=== PATIENT | male | born 1945 | race Caucasian/White ===

== ENCOUNTER 2016-11-23 11:58 | Day surgery (SDC) | payer MEDICARE, OTHER ==
--- NOTE | 2016-11-20 16:13 | HP ---
PROCEDURE DATE: 11/23/16 HISTORY OF PRESENT ILLNESS: The patient is a 89 y/o gentleman, sore and some pain after sneezing over the past 2-3 months. Noticed a bulge prior to that. Wells he had a right inguinal hernia. Was referred for further evaluation. PAST MEDICAL HISTORY: Diabetes, hypertension. CURRENT MEDICATIONS: Has been on metformin, Tradjenta, metoprolol, nifedipine, triamterene hydrochlorothiazide, meloxicam, Fenofibrate, atorvastatin, allopurinol, niacin, polyethylene glycol, Ecotrin, Centrum Silver. He had a history of being on some Bactrim DS for ear infection in the past, last took in the middle of October. ALLERGIES: NKDA. PAST SURGICAL HISTORY: Had ear surgery and nose surgery in the past. FAMILY HISTORY: Heart disease, cancer, diabetes. SOCIAL HISTORY: No smoking or alcohol abuse. REVIEW OF SYSTEMS: 10 systems reviewed. No chest pain or palpitation. Otherwise, pertinent for as noted above. No shortness of breath currently. PHYSICAL EXAMINATION: GENERAL: No acute distress. HEENT: Sclerae nonicteric. NECK: No JVD. CHEST: Equal excursion. Nonlabored breathing. CVS: Regular rate and rhythm. ABDOMEN: Soft, obese. He has a right inguinal hernia on exam. On the left, no apparent hernia currently. EXTREMITIES: No edema. NEURO: Alert, moving extremities grossly symmetrically. IMPRESSION: 1. RIGHT INGUINAL HERNIA. Feel he would benefit from repair. Shown the risk sheet and explained the procedure in detail, but not limited to, bleeding; infection; small risk of hematoma or seroma or swelling or firmness under the incision; overall risk of hernia recurrence; risk of ingrown hair or suture reaction; risk if the mesh became infected likely would need to be removed; general risks of aches, pains, burning, or numbness in lower abdomen, groin, thigh, or scrotal area possibly long-term or chronic in nature up to 10-12% with a higher risk of intermittent ache or twinge; risk of urinary retention; risk of ecchymosis/black or blue bruising in the scrotal area. He also understands the importance of losing weight long-term to overall decrease the risk of recurring. He understands. Agrees to the planned procedure. Will proceed with repair right inguinal hernia with mesh as an outpatient.
[~2016-11-23 11:58] MED LIST: BICITRA 30 ML CUP ONE; BICITRA 30 ML CUP PO ONE; CEFAZOLIN 2 GM-D5W BAG** 50 ML IV ONE; DILAUDID 2 MG INJECTION IV ONE; DIPRIVAN 200 MG/20 ML IV ONE; Lactated Ringers 1,000 ML IV ONE; Lactated Ringers 1,000 ML IV SCH; Pepcid 20 MG VIAL IV ONE; Quelicin Fliptop 200 MG/10 ML IJ ONE; SUBLIMAZE 250 MCG/5 ML IV ONE; Sensorcaine 0.25% 10 ML ONE; Versed 2 MG/2 ML Injection IV ONE; Zofran 4 MG/2 ML VIAL IV ONE
[2016-11-23] MEDS ORDERED: SUBLIMAZE 100 MCG/2 ML ONE (18:00)
[2016-11-23 19:25] VITALS: PULSE 74
[2016-11-23 19:28] VITALS: BP 146/74; O2SAT 96
--- NOTE | 2016-11-24 08:34 | OP ---
SURGERY DATE/TIME: 11/23/2016 1532 PREOPERATIVE DIAGNOSIS: Right inguinal hernia. POSTOPERATIVE DIAGNOSES: Right inguinal hernia. PROCEDURE: Right inguinal hernia repair with mesh. SURGEON: Dr. Gunnar Garcia. LENS MOLDING EQUIPMENT OPERATOR: Eloisa Lovell, Medical Student III. ANESTHESIA: General. ESTIMATED BLOOD LOSS: Minimal. FINDINGS: Small indirect hernia, moderate direct hernia, extensive very large fatty spermatic cord intertwined with cord veins (not separate lipoma). INDICATIONS: As noted above. Risks and benefits explained in detail and not limited to and consent obtained. DESCRIPTION OF PROCEDURE AND FINDINGS: The patient is taken to the operating room. He had been preoperatively marked in the holding area. General anesthesia was induced. Abdomen, groin, genitalia prepped and draped in usual sterile fashion. After official time out and no disagreement with planned procedure, a transverse incision made in the right inguinal area. Dissection carried down through a large amount of adipose tissue, a couple small subcutaneous veins were clamped, divided and ligated with Vicryl ties. Dissection carried down to the Cindy fascia down a very deep space. External oblique splint in the direction of its fibers towards the external ring. The patient had extensive fatty spermatic cord. He did have a direct hernia component, had a small indirect hernia sac. Indirect hernia sac was from the fat laden cord and high ligated with some 0 Prolene. Otherwise the main hernia component was medially. He had a direct hernia which was imbricated downward. The floor repaired with interrupted 0 PDS in tension-free manner up to a normal sized internal ring. At this point the cord was carefully inspected. He had a couple small little cord lipomas that were away from the cord. They were clamped and ligated with 3-0 Vicryl suture ligature and Vicryl ties. However 98% of the adipose tissue was all intertwined with the cord veins. This was carefully inspected to see if it was separable from the cord itself but did not appear to be so. It all appeared to be a massive amount of cord fat intertwined with all the cord vessels. It was felt removing this would make physical exam easier in the future but could very well risk the blood supply to the testicle. Therefore it was felt this should be left in place as this is all intertwined with the cord veins and cord vessels and vas. Therefore at this point the floor had been repaired back to normal sized internal ring. It was felt this would benefit from mesh repair. A 2 x 4 piece of mesh cut to appropriate dimension secured to fascia along the pubic tubercle with 0 Prolene run along Amadou's ligament along shelving portion of ilioinguinal ligament with 0 Prolene laterally past the internal ring. 0 Prolene transfixed to the rectus fascia. 0 Vicryl used to transfix the aponeurosis and internal oblique superiorly avoiding the visible iliohypogastric and inguinal nerve branches were protected as well as possible the visible veins. At this point the keyhole had been cut. The tail of the mesh retracted laterally with 0 Prolene lying nice and flat on the external oblique. At this point, copious amount of irrigation irrigating until clear. The new internal ring was felt to be not too tight. The mesh nice and flat having reinforced the inguinal floor. It should be noted that the vas is larger on this side than the opposite side but was carefully reduced back down into the scrotum. Testicle is unchanged from preoperative. With a gentle tug the cord was straightened. At this point external oblique closed with 0 Vicryl. It should be noted that the patient had a massive amount of cord fat. Copious amount of irrigation irrigating until clear. Cindy closed with 3-0 Vicryl. Subcu closed with 3-0 Vicryl. Skin closed with 4-0 Vicryl. Steri-Strips and sterile dressing applied. 0.25% Marcaine local injected along the skin incision back towards the origin of the inguinal nerve back towards the IS and the testicle had been pulled back down with gentle traction insuring the cord was straight. Steri-Strips and sterile dressing applied. The patient tolerated the procedure well. There were no immediate complications. Findings were discussed with the family out in the waiting area appraising them of difficult physical exam down the road given the large amount of cord fat but the direct and indirect hernias had been repaired. Mesh had been placed as best we could that was possible at this juncture. It was felt the patient needs to work on losing weight shelter, avoid any heavy lifting, pushing, pulling for the next eight weeks to reduce the overall risk of recurrence. Otherwise he probably have given the depth of dissection and obesity likely have ecchymosis, black, blue and bruising. He was transferred to the recovery room in stable condition.
== END 2016-11-23 19:20 | disposition home or self-care (01) ==
LOC: SDC 11:58
PROVIDERS: ATTEND Surgery
PROC: 0YU50JZ Supplement Right Inguinal Region with Synthetic Substitute, Open Approach (ICD-10-PCS; principal; 2016-11-23)
DX: K40.90 Unilateral inguinal hernia, without obstruction or gangrene, not specified as recurrent (principal); E11.9 Type 2 diabetes mellitus without complications; Z79.4 Long term (current) use of insulin; I10 Essential (primary) hypertension; Z79.899 Other long term (current) drug therapy
CPT/HCPCS: 00830; 82962; 99100; J0330; J0690; J1170; J2250; J2405; J2704; J3010

== ENCOUNTER 2021-05-25 09:06 | Emergency (ER) | payer MEDICARE, OTHER ==
[2021-05-25] MEDS ORDERED: XYLOCAINE 1% HCL 20 ML MDV IJ ONE (09:07)
[2021-05-25 09:21] VITALS: O2SAT 92
[2021-05-25 10:23] VITALS: BP 117/65; PULSE 68
[2021-05-25 10:26] LABS: Appearance CLOUDY (CLEAR); Bacteria RARE /HPF (NEGATIVE); Bilirubin NEGATIVE (NEGATIVE); Blood LARGE Ery/ul (0-5); Glucose >=500 mg/dL (NEGATIVE); Ketones SMALL (NEGATIVE); Leukocyte Esterase MODERATE (NEGATIVE); Nitrite NEGATIVE (NEGATIVE); Non-Squamous Epithelial Cells RARE /HPF (FEW); Protein,Urine Dip 100 (Negative); Specific Gravity 1.029 (1.005-1.025); Urobilinogen 2 mg/dL (0-1); WBC >100 /HPF (0-5)
[2021-05-25 10:28] LABS: RBC >101 /HPF (0-2)
[2021-05-25] MEDS ORDERED: Rocephin 1000 MG INJ IM ONE (10:39)
--- NOTE | 2021-05-25 10:39 | ERPHSYRPT ---
- History of Present Illness Time Seen by Provider: 05/25/21 09:35 Source: patient Exam Limitations: no limitations Patient Subjective Stated Complaint: burning with urination, urgency, decreased urination x 05/22/21 Triage Nursing Assessment: pt to ED c/o UTI sx and fever, reports burning while urinating, urgency, dribbling, and decreased urination since 05/22/21. denies pain at this time. no other abd problems reported. pt was able to urinate on arrival to ED and urine appears dark and cloudy. afebrile on arrival without medication assistance. Physician History: Is a 76-year-old male who presents with fever to 102 at home since . He complains of dysuria voiding small amounts frequency urgency change in color and smell foul smelling urine. No history of any prostate or urinary tract problems in the past. Allergies/Adverse Reactions: No Known Drug Allergies Allergy (Verified 05/25/21 09:10) Home Medications: Allopurinol 1 tab PO DAILY 10/27/16 [History] Aspirin [Ecotrin] 1 tab PO DAILY 10/27/16 [History] Atorvastatin Calcium 1 tab PO DAILY 10/27/16 [History] Fenofibrate,Micronized 145 mg* [Tricor 145 MG] 1 tab PO DAILY 10/27/16 [Hist ory] Linagliptin [Tradjenta] 1 tab PO DAILY 10/27/16 [History] Meloxicam 15 mg [Meloxicam 15 MG] 1 tab PO DAILY 10/27/16 [History] Metformin HCl 1000 mg [Glucophage 1000 MG] 1 tab PO BID 10/27/16 [History] Metoprolol Tartrate 50 mg [Lopressor 50 MG] 100 mg PO BID 10/27/16 [History] Multivitamin W-Minerals/Lutein [Centrum Silver Tablet] 1 tab PO DAILY 10/27/16 [History] NIFEdipine [Nifedipine ER] 1 tab PO DAILY 10/27/16 [History] Niacin 500 mg PO DAILY 10/27/16 [History] Polyethylene Glycol 3350 17 gm [Miralax Powder 17GM PACKET] 1 packet PO DAILY 10/27/16 [History] Hx Tetanus, Diphtheria Vaccination/Date Given: Yes Hx Influenza Vaccination/Date Given: Yes Hx Pneumococcal Vaccination/Date Given: Yes Immunizations Up to Date: Yes Travel Risk - International Travel Have you traveled outside of the country in past 3 weeks: No - Coronavirus Screening Are you exhibiting any of the following symptoms?: No Close contact with a COVID-19 positive Pt in past 14-21 Days: No - Vaccine Status Have you recieved a Covid-19 vaccination: Yes 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 - Vaccination Dates Date of 2cond Vaccination (if applicable): first of the year - Past Medical History Pertinent Past Medical History: Yes Neurological History: Other ENT History: No Pertinent History Cardiac History: Arrhythmia, High Cholesterol, Hypertension Respiratory History: No Pertinent History Endocrine Medical History: Diabetes Type II Musculoskeletal History: Arthritis, Other GI Medical History: Other History: No Pertinent History Psycho-Social History: No Pertinent History Male Reproductive Disorders: No Pertinent History Other Medical History: 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 patient had tonsillectomy and adnoidectomy as a child, patient has arthritis and gout - Past Surgical History Past Surgical History: Yes Neuro Surgical History: No Pertinent History Cardiac: No Pertinent History Respiratory: No Pertinent History Gastrointestinal: Other Genitourinary: No Pertinent History Musculoskeletal: No Pertinent History Male Surgical History: No Pertinent History Other Surgical History: has had a colonoscopy has had nose surgery 1987, patient has had mastoid surgery 1963 - Social History Smoking Status: Never smoker Exposure to second hand smoke: No Drug Use: none Patient Lives Alone: No - Review of Systems Constitutional: Fever, Night Sweats Eyes: No Symptoms Ears, Nose, & Throat: No Symptoms Respiratory: No Cough, No Dyspnea Cardiac: No Chest Pain, No Edema, No Syncope Abdominal/Gastrointestinal: No Abdominal Pain, No Nausea, No Vomiting, No Diarrhea Genitourinary Symptoms: Dysuria, Frequency, Hematuria, Hesitancy, Urgency Musculoskeletal: No Back Pain, No Neck Pain Skin: No Rash Neurological: No Dizziness, No Focal Weakness, No Sensory Changes Psychological: No Symptoms Endocrine: No Symptoms Hematologic/Lymphatic: No Symptoms Immunological/Allergic: No Symptoms - Nursing Vital Signs Nursing Vital Signs: Initial Vital Signs Temperature 98 F 05/25/21 09:11 Pulse Rate 80 05/25/21 09:11 Respiratory Rate 20 05/25/21 09:11 Blood Pressure 148/66 05/25/21 09:11 O2 Sat by Pulse Oximetry 92 L 05/25/21 09:11 Pain Scale Pain Intensity 0 - Physical Exam General Appearance: mild distress, alert Eye Exam: PERRL/EOMI Ears, Nose, Throat Exam: pharynx normal, moist mucous membranes Neck Exam: normal inspection, supple Respiratory Exam: normal breath sounds, lungs clear Cardiovascular Exam: regular rate/rhythm, No edema Gastrointestinal/Abdomen Exam: soft, No tenderness Rectal Exam: deferred Male Genital Exam: normal genitalia Back Exam: normal inspection, No CVA tenderness Extremity Exam: normal inspection, normal range of motion, No pedal edema Neurologic Exam: alert, oriented x 3, cooperative, sensation nml, No motor deficits Skin Exam: normal color, warm, dry, No rash SpO2 Interpretation: normal SpO2: 92 O2 Delivery: Room Air - Course Nursing assessment & vital signs reviewed: Yes Ordered Tests: Active Orders 24 hr Category Date Time Status CULTURE,URINE Stat Lab 05/25/21 09:33 Received UA W/RFX UR CULTURE Stat Lab 05/25/21 09:33 Completed Lab/Rad Data: Laboratory Results 05/25/21 Range/Units 09:33 Urine Color ELISABETH (YELLOW) Urine Appearance CLOUDY (CLEAR) Urine pH 5.0 (5-6) Ur Specific [place] 1.029 (1.005-1.025) Urine Protein 100 (Negative) Urine Ketones SMALL (NEGATIVE) Urine Blood LARGE (0-5) Roger/ul Urine Nitrite NEGATIVE (NEGATIVE) Urine Bilirubin NEGATIVE (NEGATIVE) Urine Urobilinogen 2 (0-1) mg/dL Ur Leukocyte Esterase MODERATE (NEGATIVE) Urine WBC (Auto) >100 (0-5) /HPF Urine RBC (Auto) >101 (0-2) /HPF Urine Bacteria (Auto) RARE (NEGATIVE) /HPF U Non-Squamous Epi Cells RARE (FEW) /HPF Urine Culture Reflexed YES (NO) Urine Glucose >=500 (NEGATIVE) mg/dL - Progress Progress: unchanged - Departure Departure Disposition: Home Clinical Impression: Urinary tract infection Condition: Stable Critical Care Time: No Referrals: JUNE SHARMA [Primary Care Provider] - Instructions: Urinary Tract Infection, Adult (DC) Prescriptions: Smz/Tmp Ds Tablet [Bactrim Ds Tablet] 1 tab PO Q12H 10 Days #20 tablet Cephalexin Mh 500 mg [Keflex 500 mg] 500 mg PO QID #40 cap
[2021-05-25] MEDS ORDERED: Rocephin 1000 MG INJ ONE (10:45)
== END 2021-05-25 11:12 | disposition home or self-care (01) ==
LOC: ED 09:06
DX: N39.0 Urinary tract infection, site not specified (principal)
CPT/HCPCS: 81001; 87077; 87086; 87186; 96372; 99283; J0696

== ENCOUNTER 2022-12-01 16:01 | Observation (INO) | payer MEDICARE, OTHER ==
[2022-12-01 17:46] LABS: ALBUMIN 4.7 g/dL (3.5-5.0); ALKALINE PHOSPHATASE 72 U/L (38-126); ANION GAP 18.3 MEQ/L (5-15); BLOOD UREA NITROGEN 20 mg/dL (9-20); CHLORIDE 104 mmol/L (98-107); Calcium 9.2 mg/dL (8.4-10.2); Carbon Dioxide 22 mmol/L (22-30); Creatinine 1 0.95 mg/dL (0.66-1.25); EST GLOMERULAR FILTRATION RATE > 60.0 ML/MIN; Glucose 116 mg/dL (74-106); Potassium 3.8 mmol/L (3.5-5.1); SGOT/AST 44 U/L (17-59); SGPT/ALT 60 U/L (0-50); SODIUM 140 mmol/L (137-145); Total Protein 8.4 g/dL (6.3-8.2)
[2022-12-01 17:51] LABS: Absolute Neutrophil Ct (ANC) 4.59 x10^3/uL (1.4-6.9); BASOPHIL % 0.9 % (0.0-0.4); Eosinophil % 0.9 % (0.00-5.0); Hematocrit 49.1 % (42-50); Hemoglobin 16.7 g/dL (12.5-18.0); IMMATURE GRAN # 0.02 x10^3u/L (0.00-0.03); IMMATURE GRAN % 0.2 % (0.00-0.4); Lymphocytes % 47.7 % (24.0-44.0); Mean Cell Volume 94.1 fL (78-100); Mean Platelet Volume 10.5 fL (7.5-11.0); Monocyte (Absolute #) 0.79 x10^3/uL (0.0-1.3); Monocytes % 7.4 % (0.0-12.0); Neutrophil % 42.9 % (36.0-66.0); Platelet Count 289 x10^3/uL (150-450); Red Blood Count 5.22 x10^6/uL (4.1-5.6); Red Cell Distribution Width 13.2 % (11.5-14.0); White Blood Count 10.7 x10^3/uL (4.0-10.5)
--- NOTE | 2022-12-01 17:54 | ERPHSYRPT ---
- History of Present Illness Time Seen by Provider: 12/01/22 17:47 Source: patient Exam Limitations: no limitations Patient Subjective Stated Complaint: pt here for weakness, hypertension, and lower heart heart for a couple days. Triage Nursing Assessment: pt alert ,resp easy, skin w/d/p, arrived per wc, able to undress self, monitor vent bigeminy at times Physician History: Patient is a 77-year-old male presents to our ED for evaluation of generalized weakness and some dizziness only when he transitions from sit to stand. No nausea vomiting no diarrhea. No rash. No chest pain or shortness of breath. Symptoms are mild to moderate in intensity. Sit to stand reproduces symptoms. Patient asymptomatic at rest. Family at bedside. They voiced no other complaints or concerns at this time Patient reports low heart rate at home however it is unclear whether or not the heart rate/vitals were taken appropriately. Patient has not experienced any bouts of bradycardia while in our ED. Portions of this note were created with voice recognition technology. There may be grammatical, spelling, punctuation or sound alike errors Timing/Duration: today Severity: moderate Modifying Factors: Improves With: other (Transition of sit to stand.) Associated Symptoms: denies symptoms Allergies/Adverse Reactions: No Known Drug Allergies Allergy (Verified 12/01/22 16:29) Home Medications: Aspirin [Ecotrin] 1 tab PO DAILY 10/27/16 [History] Atorvastatin Calcium 1 tab PO DAILY 10/27/16 [History] Metformin HCl 1000 mg [Glucophage 1000 MG] 1 tab PO BID 10/27/16 [History] Metoprolol Tartrate 50 mg [Lopressor 50 MG] 100 mg PO BID 10/27/16 [History] Multivitamin W-Minerals/Lutein [Centrum Silver Tablet] 1 tab PO DAILY 10/27/16 [History] NIFEdipine [Nifedipine ER] 1 tab PO DAILY 10/27/16 [History] Niacin 500 mg PO DAILY 10/27/16 [History] Polyethylene Glycol 3350 17 gm [Miralax Powder 17GM PACKET] 1 packet PO DAILY 10/27/16 [History] allopurinoL [Allopurinol] 1 tab PO DAILY 10/27/16 [History] Empagliflozin [Jardiance] 25 mg PO DAILY 12/01/22 [History] Ergocalciferol (Vitamin D2) [Vitamin D2] 1 ea WEEKLY 12/01/22 [History] Ramipril [Altace] 5 mg PO DAILY 12/01/22 [History] Rivaroxaban 10 mg Tablet [Xarelto 10 mg Tablet] 20 mg PO DAILY 12/01/22 [History] Tamsulosin HCl 0.4 mg [Flomax 0.4 MG] 0.4 mg PO DAILY 12/01/22 [History] Hx Tetanus, Diphtheria Vaccination/Date Given: Yes Hx Influenza Vaccination/Date Given: Yes Hx Pneumococcal Vaccination/Date Given: Yes Immunizations Up to Date: Yes Travel Risk - International Travel Have you traveled outside of the country in past 3 weeks: No - Coronavirus Screening Are you exhibiting any of the following symptoms?: No Close contact with a COVID-19 positive Pt in past 14-21 Days: No - Vaccine Status Have you recieved a Covid-19 vaccination: Yes Appliance Repair Technician: [place] - Vaccination Dates Date of 2cond Vaccination (if applicable): first of the year - Review of Systems Constitutional: No Symptoms, No Fever, No Chills Eyes: No Symptoms Ears, Nose, & Throat: No Symptoms Respiratory: No Symptoms, No Cough, No Dyspnea Cardiac: No Symptoms, No Chest Pain, No Edema, No Syncope Abdominal/Gastrointestinal: No Symptoms, No Abdominal Pain, No Nausea, No Vomiting, No Diarrhea Genitourinary Symptoms: No Symptoms, No Dysuria Musculoskeletal: No Symptoms, No Back Pain, No Neck Pain Skin: No Symptoms, No Rash Neurological: No Symptoms, No Dizziness, No Focal Weakness, No Sensory Changes Psychological: No Symptoms Endocrine: No Symptoms Hematologic/Lymphatic: No Symptoms Immunological/Allergic: No Symptoms All Other Systems: Reviewed and Negative - Past Medical History Pertinent Past Medical History: Yes Neurological History: Other ENT History: No Pertinent History Cardiac History: Arrhythmia, High Cholesterol, Hypertension Respiratory History: No Pertinent History Endocrine Medical History: Diabetes Type II Musculoskeletal History: Arthritis, Other GI Medical History: Other History: No Pertinent History Psycho-Social History: No Pertinent History Male Reproductive Disorders: No Pertinent History Other Medical History: 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 patient had tonsillectomy and adnoidectomy as a child, patient has arthritis and gout - Past Surgical History Past Surgical History: Yes Neuro Surgical History: No Pertinent History Cardiac: No Pertinent History Respiratory: No Pertinent History Gastrointestinal: Other Genitourinary: No Pertinent History Musculoskeletal: No Pertinent History Male Surgical History: No Pertinent History Other Surgical History: has had a colonoscopy has had nose surgery 1971, 1987, patient has had mastoid surgery 1963 - Social History Smoking Status: Never smoker Exposure to second hand smoke: No Drug Use: none Patient Lives Alone: No - Nursing Vital Signs Nursing Vital Signs: Initial Vital Signs Temperature 97.6 F 12/01/22 16:28 Pulse Rate 72 12/01/22 16:28 Respiratory Rate 18 12/01/22 16:28 Blood Pressure 182/88 12/01/22 16:28 O2 Sat by Pulse Oximetry 96 12/01/22 16:28 Pain Scale Pain Intensity 0 - Physical Exam General Appearance: no apparent distress, alert Eye Exam: PERRL/EOMI, eyes nml inspection Ears, Nose, Throat Exam: normal ENT inspection, TMs normal, pharynx normal, moist mucous membranes Neck Exam: normal inspection, non-tender, supple, full range of motion Respiratory Exam: normal breath sounds, lungs clear, airway intact, No respiratory distress Cardiovascular Exam: regular rate/rhythm, normal heart sounds, normal peripheral pulses Gastrointestinal/Abdomen Exam: soft, normal bowel sounds, No tenderness, No mass Back Exam: normal inspection, normal range of motion, No CVA tenderness, No vertebral tenderness Extremity Exam: normal inspection, normal range of motion, pelvis stable Neurologic Exam: alert, oriented x 3, cooperative, normal mood/affect, nml cerebellar function, nml station & gait, sensation nml, No motor deficits Skin Exam: normal color, warm, dry, No rash Lymphatic Exam: No adenopathy SpO2 Interpretation: normal SpO2: 97 O2 Delivery: Room Air - Course Nursing assessment & vital signs reviewed: Yes EKG Interpreted by Me: RATE (80), Sinus Rhythm, NORMAL AXIS, prolonged QT inte rval - Radiology Exams Chest X-ray Interpretation: Interpreted by me (Nonacute chest) Ordered Tests: Active Orders 24 hr Category Date Time Status Refrigeration Mechanic Helper STAT Care 12/01/22 17:15 Active EKG-ER Only STAT Care 12/01/22 17:14 Active IV Insertion STAT Care 12/01/22 17:14 Active Pulse Oximetry (ED) STAT Care 12/01/22 17:14 Active CHEST 1 VIEW (PORTABLE) Stat Exams 12/01/22 17:15 Taken CBC W DIFF Stat Lab 12/01/22 17:25 Completed CMP Stat Lab 12/01/22 17:25 Completed MAG [MAGNESIUM] Stat Lab 12/01/22 17:25 Completed TROPONIN Q4H Lab 12/01/22 17:25 Completed TROPONIN Q4H Lab 12/01/22 20:15 Completed TROPONIN Q4H Lab 12/02/22 01:15 Ordered UA W/RFX UR CULTURE Stat Lab 12/01/22 17:26 Completed Transfer Order Routine Transfer 12/01/22 Ordered Medication Summary Discontinued Medications Generic Name Dose Route Start Last Admin Trade Name Freq PRN Reason Stop Dose Admin Sodium Chloride 1,000 mls @ 999 mls/hr 12/01/22 20:15 12/01/22 20:20 Sodium Chloride 0.9% 1000 Ml IV 12/01/22 21:15 999 mls/hr .Q1H1M STA Administration Sodium Chloride Confirm 12/01/22 20:18 Sodium Chloride 0.9% 1000 Ml Administered 12/01/22 20:19 Dose 1,000 mls @ ud .ROUTE .STK-MED ONE Lab/Rad Data: Laboratory Result Diagrams 12/01/22 17:25 12/01/22 17:25 Laboratory Results 12/01/22 12/01/22 12/01/22 Range/Units 20:15 17:30 17:26 WBC (4.0-10.5) x10^3/uL RBC (4.1-5.6) x10^6/uL Hgb (12.5-18.0) g/dL Hct (42-50) % MCV (78-100) fL MCH (26-32) pg MCHC (32-36) g/dL RDW (11.5-14.0) % Plt Count (150-450) x10^3/uL MPV (7.5-11.0) fL Gran % (36.0-66.0) % Immature Gran % (Auto) (0.00-0.4) % Nucleat RBC Rel Count (0.00-0.1) % Eos # (Auto) (0-0.5) x10^3/uL Immature Gran # (Auto) (0.00-0.03) x10^3u/L Absolute Lymphs (auto) (1.0-4.6) x10^3/uL Absolute Monos (auto) (0.0-1.3) x10^3/uL Absolute Nucleated RBC (0.00-0.01) x10^3u/L Lymphocytes % (24.0-44.0) % Monocytes % (0.0-12.0) % Eosinophils % (0.00-5.0) % Basophils % (0.0-0.4) % Absolute Granulocytes (1.4-6.9) x10^3/uL Basophils # (0-0.4) x10^3/uL Sodium (137-145) mmol/L Potassium (3.5-5.1) mmol/L Chloride (98-107) mmol/L Carbon Dioxide (22-30) mmol/L Anion Gap (5-15) MEQ/L BUN (9-20) mg/dL Creatinine (0.66-1.25) mg/dL Estimated GFR ML/MIN Glucose (74-106) mg/dL Calcium (8.4-10.2) mg/dL Magnesium (1.6-2.3) mg/dL Total Bilirubin (0.2-1.3) mg/dL AST (17-59) U/L ALT (0-50) U/L Alkaline Phosphatase (38-126) U/L Troponin I < 0.012 (0.000-0.034) ng/mL Serum Total Protein (6.3-8.2) g/dL Albumin (3.5-5.0) g/dL Urine Color Yellow (Yellow) Urine Appearance Clear (Clear) Urine pH 5.0 (4.6-8.0) Ur Specific Jolo 1.010 (1.005-1.030) Urine Protein Negative (Negative) Urine Glucose (UA) 500 A (Negative) mg/dL Urine Ketones Trace A (Negative) Urine Blood Negative (Negative) Urine Nitrite Negative (Negative) Urine Bilirubin Negative (Negative) Urine Urobilinogen 0.2 (0.2) mg/dL Ur Leukocyte Esterase Negative (Negative) U Hyaline Cast (Auto) NONE SEEN (0-2) /LPF Urine Microscopic RBC 0-2 (0-5) /HPF Urine Microscopic WBC 0-2 (0-5) /HPF Ur Epithelial Cells None Seen (None Seen) /HPF Urine Bacteria None Seen (None Seen) /HPF Urine Culture Reflexed NO (NO) Influenza Type A Ag NEGATIVE (NEGATIVE) Influenza Type B Ag NEGATIVE (NEGATIVE) RSV (PCR) NEGATIVE (Negative) SARS-CoV-2 (PCR) NEGATIVE (NEGATIVE) 12/01/22 12/01/22 12/01/22 Range/Units 17:25 17:25 17:25 WBC (4.0-10.5) x10^3/uL RBC (4.1-5.6) x10^6/uL Hgb (12.5-18.0) g/dL Hct (42-50) % MCV (78-100) fL MCH (26-32) pg MCHC (32-36) g/dL RDW (11.5-14.0) % Plt Count (150-450) x10^3/uL MPV (7.5-11.0) fL Gran % (36.0-66.0) % Immature Gran % (Auto) (0.00-0.4) % Nucleat RBC Rel Count (0.00-0.1) % Eos # (Auto) (0-0.5) x10^3/uL Immature Gran # (Auto) (0.00-0.03) x10^3u/L Absolute Lymphs (auto) (1.0-4.6) x10^3/uL Absolute Monos (auto) (0.0-1.3) x10^3/uL Absolute Nucleated RBC (0.00-0.01) x10^3u/L Lymphocytes % (24.0-44.0) % Monocytes % (0.0-12.0) % Eosinophils % (0.00-5.0) % Basophils % (0.0-0.4) % Absolute Granulocytes (1.4-6.9) x10^3/uL Basophils # (0-0.4) x10^3/uL Sodium 140 (137-145) mmol/L Potassium 3.8 (3.5-5.1) mmol/L Chloride 104 (98-107) mmol/L Carbon Dioxide 22 (22-30) mmol/L Anion Gap 18.3 H (5-15) MEQ/L BUN 20 (9-20) mg/dL Creatinine 0.95 (0.66-1.25) mg/dL Estimated GFR > 60.0 ML/MIN Glucose 116 H (74-106) mg/dL Calcium 9.2 (8.4-10.2) mg/dL Magnesium 1.9 (1.6-2.3) mg/dL Total Bilirubin 1.00 (0.2-1.3) mg/dL AST 44 (17-59) U/L ALT 60 H (0-50) U/L Alkaline Phosphatase 72 (38-126) U/L Troponin I < 0.012 (0.000-0.034) ng/mL Serum Total Protein 8.4 H (6.3-8.2) g/dL Albumin 4.7 (3.5-5.0) g/dL Urine Color (Yellow) Urine Appearance (Clear) Urine pH (4.6-8.0) Ur Specific Jolo (1.005-1.030) Urine Protein (Negative) Urine Glucose (UA) (Negative) mg/dL Urine Ketones (Negative) Urine Blood (Negative) Urine Nitrite (Negative) Urine Bilirubin (Negative) Urine Urobilinogen (0.2) mg/dL Ur Leukocyte Esterase (Negative) U Hyaline Cast (Auto) (0-2) /LPF Urine Microscopic RBC (0-5) /HPF Urine Microscopic WBC (0-5) /HPF Ur Epithelial Cells (None Seen) /HPF Urine Bacteria (None Seen) /HPF Urine Culture Reflexed (NO) Influenza Type A Ag (NEGATIVE) Influenza Type B Ag (NEGATIVE) RSV (PCR) (Negative) SARS-CoV-2 (PCR) (NEGATIVE) 12/01/22 Range/Units 17:25 WBC 10.7 H (4.0-10.5) x10^3/uL RBC 5.22 (4.1-5.6) x10^6/uL Hgb 16.7 (12.5-18.0) g/dL Hct 49.1 (42-50) % MCV 94.1 (78-100) fL MCH 32.0 (26-32) pg MCHC 34.0 (32-36) g/dL RDW 13.2 (11.5-14.0) % Plt Count 289 (150-450) x10^3/uL MPV 10.5 (7.5-11.0) fL Gran % 42.9 (36.0-66.0) % Immature Gran % (Auto) 0.2 (0.00-0.4) % Nucleat RBC Rel Count 0.0 (0.00-0.1) % Eos # (Auto) 0.10 (0-0.5) x10^3/uL Immature Gran # (Auto) 0.02 (0.00-0.03) x10^3u/L Absolute Lymphs (auto) 5.10 H (1.0-4.6) x10^3/uL Absolute Monos (auto) 0.79 (0.0-1.3) x10^3/uL Absolute Nucleated RBC 0.00 (0.00-0.01) x10^3u/L Lymphocytes % 47.7 H (24.0-44.0) % Monocytes % 7.4 (0.0-12.0) % Eosinophils % 0.9 (0.00-5.0) % Basophils % 0.9 (0.0-0.4) % Absolute Granulocytes 4.59 (1.4-6.9) x10^3/uL Basophils # 0.10 (0-0.4) x10^3/uL Sodium (137-145) mmol/L Potassium (3.5-5.1) mmol/L Chloride (98-107) mmol/L Carbon Dioxide (22-30) mmol/L Anion Gap (5-15) MEQ/L BUN (9-20) mg/dL Creatinine (0.66-1.25) mg/dL Estimated GFR ML/MIN Glucose (74-106) mg/dL Calcium (8.4-10.2) mg/dL Magnesium (1.6-2.3) mg/dL Total Bilirubin (0.2-1.3) mg/dL AST (17-59) U/L ALT (0-50) U/L Alkaline Phosphatase (38-126) U/L Troponin I (0.000-0.034) ng/mL Serum Total Protein (6.3-8.2) g/dL Albumin (3.5-5.0) g/dL Urine Color (Yellow) Urine Appearance (Clear) Urine pH (4.6-8.0) Ur Specific Jolo (1.005-1.030) Urine Protein (Negative) Urine Glucose (UA) (Negative) mg/dL Urine Ketones (Negative) Urine Blood (Negative) Urine Nitrite (Negative) Urine Bilirubin (Negative) Urine Urobilinogen (0.2) mg/dL Ur Leukocyte Esterase (Negative) U Hyaline Cast (Auto) (0-2) /LPF Urine Microscopic RBC (0-5) /HPF Urine Microscopic WBC (0-5) /HPF Ur Epithelial Cells (None Seen) /HPF Urine Bacteria (None Seen) /HPF Urine Culture Reflexed (NO) Influenza Type A Ag (NEGATIVE) Influenza Type B Ag (NEGATIVE) RSV (PCR) (Negative) SARS-CoV-2 (PCR) (NEGATIVE) - Progress Progress: improved Progress Note: Patient is 77-year-old male presents to our ED feeling unwell. Patient experiencing nonspecific complaints. Patient is a known diabetic on Jardiance. Patient's symptoms have been ongoing for approximately 2 days. Complexity of symptom is acute uncomplicated with systemic illness. Patient experiencing dizziness generalized weakness. Testing ordered includes EKG which is a normal sinus rhythm but displaying PVC. Chest x-ray which is unremarkable. CBC CMP. CMP reveals an anion gap acidosis. COVID test ordered. COVID-negative. Troponin negative. Urinalysis reveals trace ketones. In light of these findings and ketonuria it appears patient may be experiencing euglycemic DKA. Complexity of data reviewed and analyzed is moderate. Test ordered. Test reviewed. Patient's granddaughter at bedside served as independent historian. Patient unable to provide detailed history likely due to patient's age. Case discussed with Dr. Chatterjee hospitalist who accepts admission and will enter all admit orders. Since patient will be on insulin drip patient admitted to the ICU. Risk of complications and morbidity/mortality of patient management is low. Dominik chicas received IV fluids in our ED. Patient management will come from admitting physician. Patient agrees to admission at [facility]. Portions of this note were created with voice recognition technology. There may be grammatical, spelling, punctuation or sound alike errors 12/01/22 21:[address].: Other (Dr. Vargas) Will see patient in: hospital (observation) Counseled pt/family regarding: lab results, diagnosis, rad results - Departure Departure Disposition: Observation Clinical Impression: Euglycemic DKA, High anion gap metabolic acidosis, Generalized weakness, Ketonuria Condition: Stable Critical Care Time: No Referrals: JUNE SHARMA [Primary Care Provider] - Follow up/PCP as directed
[2022-12-01 18:00] LABS: Appearance Clear (Clear); Bacteria None Seen /HPF (None Seen); Bilirubin Negative (Negative); Blood Negative (Negative); Epithelial Cells None Seen /HPF (None Seen); Glucose, Urine 500 mg/dL (Negative); Hyaline Casts NONE SEEN /LPF (0-2); Ketones Trace (Negative); Leukocyte Esterase Negative (Negative); Nitrite Negative (Negative); Protein,Urine Dip Negative (Negative); RBC 0-2 /HPF (0-5); Urobilinogen 0.2 mg/dL (0.2); WBC 0-2 /HPF (0-5)
[2022-12-01 18:05] LABS: ADD URINE CULTURE? NO (NO)
[2022-12-01 18:23] LABS: INFLUENZA A NEGATIVE (NEGATIVE); INFLUENZA B NEGATIVE (NEGATIVE); RESPIRATORY SYNCTIAL VIRUS NEGATIVE (Negative); SARS-CoV-2 Xpert Express NEGATIVE (NEGATIVE)
[2022-12-01] MEDS ORDERED: Sodium Chloride 0.9% 1000 ML 1,000 ML IV STA (20:15)
[2022-12-01] MEDS ORDERED: Sodium Chloride 0.9% 1000 ML 1,000 ML ONE (20:18)
[2022-12-01] MEDS ORDERED: Lactated Ringers 1,000 ML IV SCH (23:45)
[2022-12-02] MEDS ORDERED: HUMALOG SQ PRN
--- NOTE | 2022-12-02 00:07 | PCM.HP ---
History of Present Illness - Chief Complaint Chief Complaint: bradycardia Date: 12/02/22 History of Present Illness: is a 77 year old male. 77 yo wm with hx of HTN, DM, BPH, Afib on AC presents with a 2-3 day hx of bradycardia intermittently with sxs of orthostasis on arising. Pt has noted a normal BP when this occurs. He denies recent changes in medications but baseline HR in 50s. He has had the metoprolol dosing halved > 6 months ago. He denies fevers/chills/n/v/d and has had a good appetite. He presented to the ED and was hypertensive. He had a very mildly elevated anion gap and thus was admitted for w/u. - Review of Systems Constitutional: No Fever, No Chills Respiratory: No Cough, No Short Of Breath Cardiac: Other (pre syncope), No Chest Pain, No Edema Abdominal/Gastrointestinal: No Abdominal Pain, No Nausea, No Vomiting Genitourinary Symptoms: No Dysuria Musculoskeletal: No Arthralgias Skin: No Cellulitis Neurological: Dizziness Endocrine: No Polyuria, No Polydipsia Hematologic/Lymphatic: No Blood Clots Immunological/Allergic: No Eczema Medications & Allergies Home Medications: Home Medication List Aspirin [Ecotrin] 1 tab PO DAILY 10/27/16 [History Confirmed 12/01/22] Atorvastatin Calcium 1 tab PO DAILY 10/27/16 [History Confirmed 12/01/22] Metformin HCl 1000 mg [Glucophage 1000 MG] 1 tab PO BID 10/27/16 [History Confirmed 12/01/22] Metoprolol Tartrate 50 mg [Lopressor 50 MG] 50 mg PO BID 10/27/16 [History Confirmed 12/01/22] Multivitamin W-Minerals/Lutein [Centrum Silver Tablet] 1 tab PO DAILY 10/27/16 [History Confirmed 12/01/22] NIFEdipine [Nifedipine ER] 1 tab PO DAILY 10/27/16 [History Confirmed 12/01/22] Niacin 500 mg PO DAILY 10/27/16 [History Confirmed 12/01/22] Polyethylene Glycol 3350 17 gm [Miralax Powder 17GM PACKET] 1 packet PO DAILY 10/27/16 [History Confirmed 12/01/22] allopurinoL [Allopurinol] 1 tab PO DAILY 10/27/16 [History Confirmed 12/01/22] Empagliflozin [Jardiance] 25 mg PO DAILY 12/01/22 [History Confirmed 12/01/22] Ergocalciferol (Vitamin D2) [Vitamin D2] 1 ea WEEKLY 12/01/22 [History Confirmed 12/01/22] Ramipril [Altace] 5 mg PO DAILY 12/01/22 [History Confirmed 12/01/22] Rivaroxaban 10 mg Tablet [Xarelto 10 mg Tablet] 20 mg PO DAILY 12/01/22 [History Confirmed 12/01/22] Tamsulosin HCl 0.4 mg [Flomax 0.4 MG] 0.4 mg PO DAILY 12/01/22 [History Confirmed 12/01/22] Allergies/Adverse Reactions: Allergies Allergy/AdvReac Type Severity Reaction Status Date / Time No Known Drug Allergies Allergy Verified 12/01/22 16:29 - Past Medical History Past Medical History: Yes Neurological History: Other ENT History: No Pertinent History Cardiac History: Arrhythmia, High Cholesterol, Hypertension Respiratory History: No Pertinent History Endocrine Medical History: Diabetes Type II Musculoskelatal History: Arthritis, Other GI Medical History: Other History: No Pertinent History Pyscho-Social History: No Pertinent History Male Reproductive Disorders: No Pertinent History Comment: 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 patient had tonsillectomy and adnoidectomy as a child, patient has arthritis and gout - Past Surgical History Past Surgical History: Yes Neuro Surgical History: No Pertinent History Cardiac History: No Pertinent History Respiratory Surgery: No Pertinent History GI Surgical History: Other Genitourinary Surgical Hx: No Pertinent History Musculskeletal Surgical Hx: No Pertinent History Male Surgical History: No Pertinent History Other Surgical History: has had a colonoscopy has had nose surgery 1987, patient has had mastoid surgery 1963 - Social History Smoking Status: Never smoker Exposure to second hand smoke: No Alcohol: None Drug Use: none - Physical Exam Vital Signs: Vital Signs - 24 hr Temp Pulse Resp BP Pulse Ox 12/01/22 22:04 97 12/01/22 22:03 76 18 168/74 97 12/01/22 21:00 80 20 170/82 94 L 12/01/22 20:00 76 18 163/78 93 L 12/01/22 19:00 72 20 166/64 94 L 12/01/22 17:28 84 20 182/106 97 12/01/22 17:21 98 12/01/22 16:28 97.6 F 72 18 182/88 96 General Appearance: no apparent distress Neurologic Exam: alert, oriented x 3, cooperative Eye Exam: PERRL/EOMI Ears, Nose, Throat Exam: normal ENT inspection Neck Exam: normal inspection, supple Respiratory Exam: normal breath sounds Cardiovascular Exam: regular rate/rhythm, murmur Gastrointestinal/Abdomen Exam: soft, normal bowel sounds, No tenderness, No distention Back Exam: normal inspection Extremity Exam: normal inspection Results - Labs Lab/Micro Results: Lab Results-Last 24 Hours 12/01/22 12/01/22 12/01/22 Range/Units 17:25 17:25 17:25 WBC 10.7 H (4.0-10.5) x10^3/uL RBC 5.22 (4.1-5.6) x10^6/uL Hgb 16.7 (12.5-18.0) g/dL Hct 49.1 (42-50) % MCV 94.1 (78-100) fL MCH 32.0 (26-32) pg MCHC 34.0 (32-36) g/dL RDW 13.2 (11.5-14.0) % Plt Count 289 (150-450) x10^3/uL MPV 10.5 (7.5-11.0) fL Gran % 42.9 (36.0-66.0) % Immature Gran % (Auto) 0.2 (0.00-0.4) % Nucleat RBC Rel Count 0.0 (0.00-0.1) % Eos # (Auto) 0.10 (0-0.5) x10^3/uL Immature Gran # (Auto) 0.02 (0.00-0.03) x10^3u/L Absolute Lymphs (auto) 5.10 H (1.0-4.6) x10^3/uL Absolute Monos (auto) 0.79 (0.0-1.3) x10^3/uL Absolute Nucleated RBC 0.00 (0.00-0.01) x10^3u/L Lymphocytes % 47.7 H (24.0-44.0) % Monocytes % 7.4 (0.0-12.0) % Eosinophils % 0.9 (0.00-5.0) % Basophils % 0.9 (0.0-0.4) % Absolute Granulocytes 4.59 (1.4-6.9) x10^3/uL Basophils # 0.10 (0-0.4) x10^3/uL Sodium 140 (137-145) mmol/L Potassium 3.8 (3.5-5.1) mmol/L Chloride 104 (98-107) mmol/L Carbon Dioxide 22 (22-30) mmol/L Anion Gap 18.3 H (5-15) MEQ/L BUN 20 (9-20) mg/dL Creatinine 0.95 (0.66-1.25) mg/dL Estimated GFR > 60.0 ML/MIN Glucose 116 H (74-106) mg/dL Calcium 9.2 (8.4-10.2) mg/dL Magnesium (1.6-2.3) mg/dL Total Bilirubin 1.00 (0.2-1.3) mg/dL AST 44 (17-59) U/L ALT 60 H (0-50) U/L Alkaline Phosphatase 72 (38-126) U/L Troponin I < 0.012 (0.000-0.034) ng/mL Serum Total Protein 8.4 H (6.3-8.2) g/dL Albumin 4.7 (3.5-5.0) g/dL Urine Color (Yellow) Urine Appearance (Clear) Urine pH (4.6-8.0) Ur Specific [place] (1.005-1.030) Urine Protein (Negative) Urine Glucose (UA) (Negative) mg/dL Urine Ketones (Negative) Urine Blood (Negative) Urine Nitrite (Negative) Urine Bilirubin (Negative) Urine Urobilinogen (0.2) mg/dL Ur Leukocyte Esterase (Negative) U Hyaline Cast (Auto) (0-2) /LPF Urine Microscopic RBC (0-5) /HPF Urine Microscopic WBC (0-5) /HPF Ur Epithelial Cells (None Seen) /HPF Urine Bacteria (None Seen) /HPF Urine Culture Reflexed (NO) Influenza Type A Ag (NEGATIVE) Influenza Type B Ag (NEGATIVE) RSV (PCR) (Negative) SARS-CoV-2 (PCR) (NEGATIVE) 12/01/22 12/01/22 12/01/22 Range/Units 17:25 17:26 17:30 WBC (4.0-10.5) x10^3/uL RBC (4.1-5.6) x10^6/uL Hgb (12.5-18.0) g/dL Hct (42-50) % MCV (78-100) fL MCH (26-32) pg MCHC (32-36) g/dL RDW (11.5-14.0) % Plt Count (150-450) x10^3/uL MPV (7.5-11.0) fL Gran % (36.0-66.0) % Immature Gran % (Auto) (0.00-0.4) % Nucleat RBC Rel Count (0.00-0.1) % Eos # (Auto) (0-0.5) x10^3/uL Immature Gran # (Auto) (0.00-0.03) x10^3u/L Absolute Lymphs (auto) (1.0-4.6) x10^3/uL Absolute Monos (auto) (0.0-1.3) x10^3/uL Absolute Nucleated RBC (0.00-0.01) x10^3u/L Lymphocytes % (24.0-44.0) % Monocytes % (0.0-12.0) % Eosinophils % (0.00-5.0) % Basophils % (0.0-0.4) % Absolute Granulocytes (1.4-6.9) x10^3/uL Basophils # (0-0.4) x10^3/uL Sodium (137-145) mmol/L Potassium (3.5-5.1) mmol/L Chloride (98-107) mmol/L Carbon Dioxide (22-30) mmol/L Anion Gap (5-15) MEQ/L BUN (9-20) mg/dL Creatinine (0.66-1.25) mg/dL Estimated GFR ML/MIN Glucose (74-106) mg/dL Calcium (8.4-10.2) mg/dL Magnesium 1.9 (1.6-2.3) mg/dL Total Bilirubin (0.2-1.3) mg/dL AST (17-59) U/L ALT (0-50) U/L Alkaline Phosphatase (38-126) U/L Troponin I (0.000-0.034) ng/mL Serum Total Protein (6.3-8.2) g/dL Albumin (3.5-5.0) g/dL Urine Color Yellow (Yellow) Urine Appearance Clear (Clear) Urine pH 5.0 (4.6-8.0) Ur Specific [place] 1.010 (1.005-1.030) Urine Protein Negative (Negative) Urine Glucose (UA) 500 A (Negative) mg/dL Urine Ketones Trace A (Negative) Urine Blood Negative (Negative) Urine Nitrite Negative (Negative) Urine Bilirubin Negative (Negative) Urine Urobilinogen 0.2 (0.2) mg/dL Ur Leukocyte Esterase Negative (Negative) U Hyaline Cast (Auto) NONE SEEN (0-2) /LPF Urine Microscopic RBC 0-2 (0-5) /HPF Urine Microscopic WBC 0-2 (0-5) /HPF Ur Epithelial Cells None Seen (None Seen) /HPF Urine Bacteria None Seen (None Seen) /HPF Urine Culture Reflexed NO (NO) Influenza Type A Ag NEGATIVE (NEGATIVE) Influenza Type B Ag NEGATIVE (NEGATIVE) RSV (PCR) NEGATIVE (Negative) SARS-CoV-2 (PCR) NEGATIVE (NEGATIVE) 12/01/22 Range/Units 20:15 WBC (4.0-10.5) x10^3/uL RBC (4.1-5.6) x10^6/uL Hgb (12.5-18.0) g/dL Hct (42-50) % MCV (78-100) fL MCH (26-32) pg MCHC (32-36) g/dL RDW (11.5-14.0) % Plt Count (150-450) x10^3/uL MPV (7.5-11.0) fL Gran % (36.0-66.0) % Immature Gran % (Auto) (0.00-0.4) % Nucleat RBC Rel Count (0.00-0.1) % Eos # (Auto) (0-0.5) x10^3/uL Immature Gran # (Auto) (0.00-0.03) x10^3u/L Absolute Lymphs (auto) (1.0-4.6) x10^3/uL Absolute Monos (auto) (0.0-1.3) x10^3/uL Absolute Nucleated RBC (0.00-0.01) x10^3u/L Lymphocytes % (24.0-44.0) % Monocytes % (0.0-12.0) % Eosinophils % (0.00-5.0) % Basophils % (0.0-0.4) % Absolute Granulocytes (1.4-6.9) x10^3/uL Basophils # (0-0.4) x10^3/uL Sodium (137-145) mmol/L Potassium (3.5-5.1) mmol/L Chloride (98-107) mmol/L Carbon Dioxide (22-30) mmol/L Anion Gap (5-15) MEQ/L BUN (9-20) mg/dL Creatinine (0.66-1.25) mg/dL Estimated GFR ML/MIN Glucose (74-106) mg/dL Calcium (8.4-10.2) mg/dL Magnesium (1.6-2.3) mg/dL Total Bilirubin (0.2-1.3) mg/dL AST (17-59) U/L ALT (0-50) U/L Alkaline Phosphatase (38-126) U/L Troponin I < 0.012 (0.000-0.034) ng/mL Serum Total Protein (6.3-8.2) g/dL Albumin (3.5-5.0) g/dL Urine Color (Yellow) Urine Appearance (Clear) Urine pH (4.6-8.0) Ur Specific [place] (1.005-1.030) Urine Protein (Negative) Urine Glucose (UA) (Negative) mg/dL Urine Ketones (Negative) Urine Blood (Negative) Urine Nitrite (Negative) Urine Bilirubin (Negative) Urine Urobilinogen (0.2) mg/dL Ur Leukocyte Esterase (Negative) U Hyaline Cast (Auto) (0-2) /LPF Urine Microscopic RBC (0-5) /HPF Urine Microscopic WBC (0-5) /HPF Ur Epithelial Cells (None Seen) /HPF Urine Bacteria (None Seen) /HPF Urine Culture Reflexed (NO) Influenza Type A Ag (NEGATIVE) Influenza Type B Ag (NEGATIVE) RSV (PCR) (Negative) SARS-CoV-2 (PCR) (NEGATIVE) - Radiology Impressions Radiology Exams & Impressions: Radiology Procedures Category Date Time Status CHEST 1 VIEW (PORTABLE) Stat Exams 12/01/22 17:15 Taken Assessment/Plan (1) Bradycardia Current Visit: Yes Status: Acute Assessment & Plan: A/P 1. Bradycardia: baseline HR in 50s. On metop. Unclear if current fatigue related to metop and HR vs bigeminy noted on ECG. Will keep on tele to see bigeminy burden. Hold Metop for now. 2. Metabolic acidosis: mild. Ketones in urine minimal. Check lactate. 3. HTN: re-start altace and nifedipine. Hold metop 4. Murmur: systolic. Chech echo 5. Afib: currently in NSR. Continue AC 6. DM: SS for now. 7. FEN: oral diet 8. PX: DOAC entire encounter done via telemedicine Code(s): R00.1 - BRADYCARDIA, UNSPECIFIED (2) Generalized weakness Current Visit: Yes Status: Acute Code(s): R53.1 - WEAKNESS Telemedicine Encounter - Telemedicine Encounter Telemedicine Encounter: The entirety of this encounter was performed via Telemedicine"
[2022-12-02 02:41] LABS: Absolute Neutrophil Ct (ANC) 5.62 x10^3/uL (1.4-6.9); BASOPHIL % 1.1 % (0.0-0.4); Basophil (Absolute #) 0.11 x10^3/uL (0-0.4); Eosinophil % 1.3 % (0.00-5.0); Eosinophil (Absolute #) 0.13 x10^3/uL (0-0.5); Hematocrit 47.9 % (42-50); Hemoglobin 16.3 g/dL (12.5-18.0); IMMATURE GRAN # 0.02 x10^3u/L (0.00-0.03); IMMATURE GRAN % 0.2 % (0.00-0.4); Lymphocytes % 33.9 % (24.0-44.0); Mean Cell Volume 94.7 fL (78-100); Mean Corpuscular Hemoglobin 32.2 pg (26-32); Mean Platelet Volume 10.4 fL (7.5-11.0); Monocyte (Absolute #) 0.94 x10^3/uL (0.0-1.3); Monocytes % 9.1 % (0.0-12.0); Neutrophil % 54.4 % (36.0-66.0); Platelet Count 248 x10^3/uL (150-450); Red Blood Count 5.06 x10^6/uL (4.1-5.6); Red Cell Distribution Width 13.2 % (11.5-14.0); White Blood Count 10.3 x10^3/uL (4.0-10.5)
[2022-12-02 02:52] LABS: BLOOD UREA NITROGEN 17 mg/dL (9-20); CHLORIDE 106 mmol/L (98-107); CK-Creatinine Phosphokinase 124 U/L (55-170); Calcium 8.7 mg/dL (8.4-10.2); Carbon Dioxide 21 mmol/L (22-30); Creatinine 1 0.76 mg/dL (0.66-1.25); EST GLOMERULAR FILTRATION RATE > 60.0 ML/MIN; Glucose 106 mg/dL (74-106); Potassium 3.9 mmol/L (3.5-5.1); SODIUM 139 mmol/L (137-145)
--- NOTE | 2022-12-02 08:31 | XRAY ---
Indication: Pneumonia. Comparison: None Portable apical lordotic chest demonstrates right hemidiaphragm elevation with minimal discoid atelectasis/scarring. Remaining heart and lungs unremarkable. Bony thorax intact with mild degenerative changes.
[2022-12-02] MEDS ORDERED: Altace 1.25 MG PO SCH (10:00)
[2022-12-02] MEDS ORDERED: Adalat CC 30 MG TABLET PO SCH ×2 (10:00→18:00)
[2022-12-02] MEDS ORDERED: BABY ASPIRIN 81 MG CHEW PO SCH (10:00)
[2022-12-02] MEDS: ECOTRIN 81 MG PO SCH (11:24)
[2022-12-02] MEDS ORDERED: Miralax Powder 17GM PACKET PO PRN (15:00)
[2022-12-02] MEDS: ZYLOPRIM 100 MG PO SCH (15:49)
[2022-12-02] MEDS ORDERED: APRESOLINE 20 MG/ML INJ IV PRN (16:36)
--- NOTE | 2022-12-02 16:39 | PCM.NOTE ---
Date and Time: 12/02/22 1634 Subjective Assessment: He did miss his BP pills last night. He last took flomax 9d ago - got a different looking pill, then he felt dizzy after taking it, so he stopped taking it. He last took metoprolol 2d ago in the morning. - Review of Systems Constitutional: No Fever Abdominal/Gastrointestinal: No Vomiting Objective Exam General Appearance: no apparent distress, alert, obese Neurologic Exam: oriented x 3, cooperative Skin Exam: normal color, warm, dry, No rash Eye Exam: eyes nml inspection Ears, Nose, Throat Exam: moist mucous membranes Neck Exam: normal inspection Respiratory Exam: normal breath sounds, lungs clear, No crackles/rales, No rhonchi, No wheezing Cardiovascular Exam: regular rate/rhythm, normal heart sounds, No murmur Gastrointestinal/Abdomen Exam: soft, normal bowel sounds, No tenderness, No di stention, No mass, No guarding, No rebound Extremity Exam: normal inspection, No pedal edema, No swelling Back Exam: normal inspection, No rash OBJECTIVE DATA Vital Signs: Vital Signs - 24 hr Temp Pulse Resp BP Pulse Ox 12/02/22 16:00 98.0 F 82 16 193/96 92 L 12/02/22 11:56 81 12/02/22 10:33 81 175/89 12/02/22 07:55 76 176/94 12/02/22 07:41 98.5 F 79 16 184/92 92 L 12/02/22 07:30 78 12/02/22 03:41 97.9 F 72 20 159/78 95 12/02/22 00:00 71 18 163/66 95 12/01/22 22:58 97.7 F 72 18 178/84 94 L 12/01/22 22:04 97 12/01/22 22:03 76 18 168/74 97 12/01/22 21:00 80 20 170/82 94 L 12/01/22 20:00 76 18 163/78 93 L 12/01/22 19:00 72 20 166/64 94 L 12/01/22 17:28 84 20 182/106 97 12/01/22 17:21 98 Pain Assessment - Last Documented Pain Intensity 0 Intake and Output: Intake & Output 11/30/22 12/01/22 12/02/22 12/03/22 11:59 11:59 11:59 11:59 Intake Total 720 Output Total 1100 300 Balance -380 -300 Weight 110.6 kg Lab Results: Lab Results-Last 24 Hours 12/01/22 12/01/22 12/01/22 Range/Units 17:25 17:25 17:25 WBC 10.7 H (4.0-10.5) x10^3/uL RBC 5.22 (4.1-5.6) x10^6/uL Hgb 16.7 (12.5-18.0) g/dL Hct 49.1 (42-50) % MCV 94.1 (78-100) fL MCH 32.0 (26-32) pg MCHC 34.0 (32-36) g/dL RDW 13.2 (11.5-14.0) % Plt Count 289 (150-450) x10^3/uL MPV 10.5 (7.5-11.0) fL Gran % 42.9 (36.0-66.0) % Immature Gran % (Auto) 0.2 (0.00-0.4) % Nucleat RBC Rel Count 0.0 (0.00-0.1) % Eos # (Auto) 0.10 (0-0.5) x10^3/uL Immature Gran # (Auto) 0.02 (0.00-0.03) x10^3u/L Absolute Lymphs (auto) 5.10 H (1.0-4.6) x10^3/uL Absolute Monos (auto) 0.79 (0.0-1.3) x10^3/uL Absolute Nucleated RBC 0.00 (0.00-0.01) x10^3u/L Lymphocytes % 47.7 H (24.0-44.0) % Monocytes % 7.4 (0.0-12.0) % Eosinophils % 0.9 (0.00-5.0) % Basophils % 0.9 (0.0-0.4) % Absolute Granulocytes 4.59 (1.4-6.9) x10^3/uL Basophils # 0.10 (0-0.4) x10^3/uL Sodium 140 (137-145) mmol/L Potassium 3.8 (3.5-5.1) mmol/L Chloride 104 (98-107) mmol/L Carbon Dioxide 22 (22-30) mmol/L Anion Gap 18.3 H (5-15) MEQ/L BUN 20 (9-20) mg/dL Creatinine 0.95 (0.66-1.25) mg/dL Estimated GFR > 60.0 ML/MIN Glucose 116 H (74-106) mg/dL POC Glucometer (74 to 106) mg/dL Lactic Acid (0.4-2.0) Calcium 9.2 (8.4-10.2) mg/dL Magnesium (1.6-2.3) mg/dL Total Bilirubin 1.00 (0.2-1.3) mg/dL AST 44 (17-59) U/L ALT 60 H (0-50) U/L Alkaline Phosphatase 72 (38-126) U/L Creatine Kinase (55-170) U/L Troponin I < 0.012 (0.000-0.034) ng/mL Serum Total Protein 8.4 H (6.3-8.2) g/dL Albumin 4.7 (3.5-5.0) g/dL Urine Color (Yellow) Urine Appearance (Clear) Urine pH (4.6-8.0) Ur Specific [place] (1.005-1.030) Urine Protein (Negative) Urine Glucose (UA) (Negative) mg/dL Urine Ketones (Negative) Urine Blood (Negative) Urine Nitrite (Negative) Urine Bilirubin (Negative) Urine Urobilinogen (0.2) mg/dL Ur Leukocyte Esterase (Negative) U Hyaline Cast (Auto) (0-2) /LPF Urine Microscopic RBC (0-5) /HPF Urine Microscopic WBC (0-5) /HPF Ur Epithelial Cells (None Seen) /HPF Urine Bacteria (None Seen) /HPF Urine Culture Reflexed (NO) Influenza Type A Ag (NEGATIVE) Influenza Type B Ag (NEGATIVE) RSV (PCR) (Negative) SARS-CoV-2 (PCR) (NEGATIVE) 12/01/22 12/01/22 12/01/22 Range/Units 17:25 17:26 17:30 WBC (4.0-10.5) x10^3/uL RBC (4.1-5.6) x10^6/uL Hgb (12.5-18.0) g/dL Hct (42-50) % MCV (78-100) fL MCH (26-32) pg MCHC (32-36) g/dL RDW (11.5-14.0) % Plt Count (150-450) x10^3/uL MPV (7.5-11.0) fL Gran % (36.0-66.0) % Immature Gran % (Auto) (0.00-0.4) % Nucleat RBC Rel Count (0.00-0.1) % Eos # (Auto) (0-0.5) x10^3/uL Immature Gran # (Auto) (0.00-0.03) x10^3u/L Absolute Lymphs (auto) (1.0-4.6) x10^3/uL Absolute Monos (auto) (0.0-1.3) x10^3/uL Absolute Nucleated RBC (0.00-0.01) x10^3u/L Lymphocytes % (24.0-44.0) % Monocytes % (0.0-12.0) % Eosinophils % (0.00-5.0) % Basophils % (0.0-0.4) % Absolute Granulocytes (1.4-6.9) x10^3/uL Basophils # (0-0.4) x10^3/uL Sodium (137-145) mmol/L Potassium (3.5-5.1) mmol/L Chloride (98-107) mmol/L Carbon Dioxide (22-30) mmol/L Anion Gap (5-15) MEQ/L BUN (9-20) mg/dL Creatinine (0.66-1.25) mg/dL Estimated GFR ML/MIN Glucose (74-106) mg/dL POC Glucometer (74 to 106) mg/dL Lactic Acid (0.4-2.0) Calcium (8.4-10.2) mg/dL Magnesium 1.9 (1.6-2.3) mg/dL Total Bilirubin (0.2-1.3) mg/dL AST (17-59) U/L ALT (0-50) U/L Alkaline Phosphatase (38-126) U/L Creatine Kinase (55-170) U/L Troponin I (0.000-0.034) ng/mL Serum Total Protein (6.3-8.2) g/dL Albumin (3.5-5.0) g/dL Urine Color Yellow (Yellow) Urine Appearance Clear (Clear) Urine pH 5.0 (4.6-8.0) Ur Specific [place] 1.010 (1.005-1.030) Urine Protein Negative (Negative) Urine Glucose (UA) 500 A (Negative) mg/dL Urine Ketones Trace A (Negative) Urine Blood Negative (Negative) Urine Nitrite Negative (Negative) Urine Bilirubin Negative (Negative) Urine Urobilinogen 0.2 (0.2) mg/dL Ur Leukocyte Esterase Negative (Negative) U Hyaline Cast (Auto) NONE SEEN (0-2) /LPF Urine Microscopic RBC 0-2 (0-5) /HPF Urine Microscopic WBC 0-2 (0-5) /HPF Ur Epithelial Cells None Seen (None Seen) /HPF Urine Bacteria None Seen (None Seen) /HPF Urine Culture Reflexed NO (NO) Influenza Type A Ag NEGATIVE (NEGATIVE) Influenza Type B Ag NEGATIVE (NEGATIVE) RSV (PCR) NEGATIVE (Negative) SARS-CoV-2 (PCR) NEGATIVE (NEGATIVE) 12/01/22 12/01/22 12/02/22 Range/Units 20:15 22:45 02:36 WBC (4.0-10.5) x10^3/uL RBC (4.1-5.6) x10^6/uL Hgb (12.5-18.0) g/dL Hct (42-50) % MCV (78-100) fL MCH (26-32) pg MCHC (32-36) g/dL RDW (11.5-14.0) % Plt Count (150-450) x10^3/uL MPV (7.5-11.0) fL Gran % (36.0-66.0) % Immature Gran % (Auto) (0.00-0.4) % Nucleat RBC Rel Count (0.00-0.1) % Eos # (Auto) (0-0.5) x10^3/uL Immature Gran # (Auto) (0.00-0.03) x10^3u/L Absolute Lymphs (auto) (1.0-4.6) x10^3/uL Absolute Monos (auto) (0.0-1.3) x10^3/uL Absolute Nucleated RBC (0.00-0.01) x10^3u/L Lymphocytes % (24.0-44.0) % Monocytes % (0.0-12.0) % Eosinophils % (0.00-5.0) % Basophils % (0.0-0.4) % Absolute Granulocytes (1.4-6.9) x10^3/uL Basophils # (0-0.4) x10^3/uL Sodium (137-145) mmol/L Potassium (3.5-5.1) mmol/L Chloride (98-107) mmol/L Carbon Dioxide (22-30) mmol/L Anion Gap (5-15) MEQ/L BUN (9-20) mg/dL Creatinine (0.66-1.25) mg/dL Estimated GFR ML/MIN Glucose (74-106) mg/dL POC Glucometer 121 H (74 to 106) mg/dL Lactic Acid (0.4-2.0) Calcium (8.4-10.2) mg/dL Magnesium (1.6-2.3) mg/dL Total Bilirubin (0.2-1.3) mg/dL AST (17-59) U/L ALT (0-50) U/L Alkaline Phosphatase (38-126) U/L Creatine Kinase (55-170) U/L Troponin I < 0.012 < 0.012 (0.000-0.034) ng/mL Serum Total Protein (6.3-8.2) g/dL Albumin (3.5-5.0) g/dL Urine Color (Yellow) Urine Appearance (Clear) Urine pH (4.6-8.0) Ur Specific [place] (1.005-1.030) Urine Protein (Negative) Urine Glucose (UA) (Negative) mg/dL Urine Ketones (Negative) Urine Blood (Negative) Urine Nitrite (Negative) Urine Bilirubin (Negative) Urine Urobilinogen (0.2) mg/dL Ur Leukocyte Esterase (Negative) U Hyaline Cast (Auto) (0-2) /LPF Urine Microscopic RBC (0-5) /HPF Urine Microscopic WBC (0-5) /HPF Ur Epithelial Cells (None Seen) /HPF Urine Bacteria (None Seen) /HPF Urine Culture Reflexed (NO) Influenza Type A Ag (NEGATIVE) Influenza Type B Ag (NEGATIVE) RSV (PCR) (Negative) SARS-CoV-2 (PCR) (NEGATIVE) 12/02/22 12/02/22 12/02/22 Range/Units 02:36 02:36 02:40 WBC 10.3 (4.0-10.5) x10^3/uL RBC 5.06 (4.1-5.6) x10^6/uL Hgb 16.3 (12.5-18.0) g/dL Hct 47.9 (42-50) % MCV 94.7 (78-100) fL MCH 32.2 H (26-32) pg MCHC 34.0 (32-36) g/dL RDW 13.2 (11.5-14.0) % Plt Count 248 (150-450) x10^3/uL MPV 10.4 (7.5-11.0) fL Gran % 54.4 (36.0-66.0) % Immature Gran % (Auto) 0.2 (0.00-0.4) % Nucleat RBC Rel Count 0.0 (0.00-0.1) % Eos # (Auto) 0.13 (0-0.5) x10^3/uL Immature Gran # (Auto) 0.02 (0.00-0.03) x10^3u/L Absolute Lymphs (auto) 3.50 (1.0-4.6) x10^3/uL Absolute Monos (auto) 0.94 (0.0-1.3) x10^3/uL Absolute Nucleated RBC 0.00 (0.00-0.01) x10^3u/L Lymphocytes % 33.9 (24.0-44.0) % Monocytes % 9.1 (0.0-12.0) % Eosinophils % 1.3 (0.00-5.0) % Basophils % 1.1 (0.0-0.4) % Absolute Granulocytes 5.62 (1.4-6.9) x10^3/uL Basophils # 0.11 (0-0.4) x10^3/uL Sodium 139 (137-145) mmol/L Potassium 3.9 (3.5-5.1) mmol/L Chloride 106 (98-107) mmol/L Carbon Dioxide 21 L (22-30) mmol/L Anion Gap 16.0 H (5-15) MEQ/L BUN 17 (9-20) mg/dL Creatinine 0.76 (0.66-1.25) mg/dL Estimated GFR > 60.0 ML/MIN Glucose 106 (74-106) mg/dL POC Glucometer (74 to 106) mg/dL Lactic Acid 1.5 (0.4-2.0) Calcium 8.7 (8.4-10.2) mg/dL Magnesium (1.6-2.3) mg/dL Total Bilirubin (0.2-1.3) mg/dL AST (17-59) U/L ALT (0-50) U/L Alkaline Phosphatase (38-126) U/L Creatine Kinase 124 (55-170) U/L Troponin I (0.000-0.034) ng/mL Serum Total Protein (6.3-8.2) g/dL Albumin (3.5-5.0) g/dL Urine Color (Yellow) Urine Appearance (Clear) Urine pH (4.6-8.0) Ur Specific [place] (1.005-1.030) Urine Protein (Negative) Urine Glucose (UA) (Negative) mg/dL Urine Ketones (Negative) Urine Blood (Negative) Urine Nitrite (Negative) Urine Bilirubin (Negative) Urine Urobilinogen (0.2) mg/dL Ur Leukocyte Esterase (Negative) U Hyaline Cast (Auto) (0-2) /LPF Urine Microscopic RBC (0-5) /HPF Urine Microscopic WBC (0-5) /HPF Ur Epithelial Cells (None Seen) /HPF Urine Bacteria (None Seen) /HPF Urine Culture Reflexed (NO) Influenza Type A Ag (NEGATIVE) Influenza Type B Ag (NEGATIVE) RSV (PCR) (Negative) SARS-CoV-2 (PCR) (NEGATIVE) 12/02/22 12/02/22 Range/Units 07:22 16:31 WBC (4.0-10.5) x10^3/uL RBC (4.1-5.6) x10^6/uL Hgb (12.5-18.0) g/dL Hct (42-50) % MCV (78-100) fL MCH (26-32) pg MCHC (32-36) g/dL RDW (11.5-14.0) % Plt Count (150-450) x10^3/uL MPV (7.5-11.0) fL Gran % (36.0-66.0) % Immature Gran % (Auto) (0.00-0.4) % Nucleat RBC Rel Count (0.00-0.1) % Eos # (Auto) (0-0.5) x10^3/uL Immature Gran # (Auto) (0.00-0.03) x10^3u/L Absolute Lymphs (auto) (1.0-4.6) x10^3/uL Absolute Monos (auto) (0.0-1.3) x10^3/uL Absolute Nucleated RBC (0.00-0.01) x10^3u/L Lymphocytes % (24.0-44.0) % Monocytes % (0.0-12.0) % Eosinophils % (0.00-5.0) % Basophils % (0.0-0.4) % Absolute Granulocytes (1.4-6.9) x10^3/uL Basophils # (0-0.4) x10^3/uL Sodium (137-145) mmol/L Potassium (3.5-5.1) mmol/L Chloride (98-107) mmol/L Carbon Dioxide (22-30) mmol/L Anion Gap (5-15) MEQ/L BUN (9-20) mg/dL Creatinine (0.66-1.25) mg/dL Estimated GFR ML/MIN Glucose (74-106) mg/dL POC Glucometer 115 H 129 H (74 to 106) mg/dL Lactic Acid (0.4-2.0) Calcium (8.4-10.2) mg/dL Magnesium (1.6-2.3) mg/dL Total Bilirubin (0.2-1.3) mg/dL AST (17-59) U/L ALT (0-50) U/L Alkaline Phosphatase (38-126) U/L Creatine Kinase (55-170) U/L Troponin I (0.000-0.034) ng/mL Serum Total Protein (6.3-8.2) g/dL Albumin (3.5-5.0) g/dL Urine Color (Yellow) Urine Appearance (Clear) Urine pH (4.6-8.0) Ur Specific [place] (1.005-1.030) Urine Protein (Negative) Urine Glucose (UA) (Negative) mg/dL Urine Ketones (Negative) Urine Blood (Negative) Urine Nitrite (Negative) Urine Bilirubin (Negative) Urine Urobilinogen (0.2) mg/dL Ur Leukocyte Esterase (Negative) U Hyaline Cast (Auto) (0-2) /LPF Urine Microscopic RBC (0-5) /HPF Urine Microscopic WBC (0-5) /HPF Ur Epithelial Cells (None Seen) /HPF Urine Bacteria (None Seen) /HPF Urine Culture Reflexed (NO) Influenza Type A Ag (NEGATIVE) Influenza Type B Ag (NEGATIVE) RSV (PCR) (Negative) SARS-CoV-2 (PCR) (NEGATIVE) Radiology Exams: Radiology Procedures Category Date Time Status CHEST 1 VIEW (PORTABLE) Stat Exams 12/01/22 17:15 Completed ECHO W/2D AND DOPPLER [US] Routine Exams 12/02/22 00:10 Taken Assessment/Plan (1) Atrial fibrillation Current Visit: Yes Status: Acute Qualifiers: Atrial fibrillation type: paroxysmal Qualified Code(s): I48.0 - Paroxysmal atrial fibrillation Code(s): I48.91 - UNSPECIFIED ATRIAL FIBRILLATION (2) HTN (hypertension) Current Visit: Yes Status: Chronic Qualifiers: Hypertension type: primary hypertension Qualified Code(s): I10 - Essential (primary) hypertension Assessment & Plan: Gave an extra dose nifedipine this morning. PM meds early. Added hydralazine prn. Code(s): I10 - ESSENTIAL (PRIMARY) HYPERTENSION (3) Diabetes mellitus Current Visit: Yes Status: Chronic Qualifiers: Diabetes mellitus type: type 2 Diabetes mellitus predatory animal exterminator insulin use: without penitentiary use Diabetes mellitus complication status: without complication Qualified Code(s): E11.9 - Type 2 diabetes mellitus without complications Code(s): E11.9 - TYPE 2 DIABETES MELLITUS WITHOUT COMPLICATIONS (4) Bradycardia Current Visit: Yes Status: Acute Assessment & Plan: improving off of the toprol. May have to restart at lower level or with a different agent. Code(s): R00.1 - BRADYCARDIA, UNSPECIFIED (5) Generalized weakness Current Visit: Yes Status: Acute Code(s): R53.1 - WEAKNESS (6) High anion gap metabolic acidosis Current Visit: Yes Status: Acute Assessment & Plan: much improved. I've held the metformin as this could be a cause. Recheck labs in a.m. Code(s): E87.29 -
[2022-12-02] MEDS ORDERED: NON-FORMULARY ITEM (Rivaroxaban [Xarelto] 20 MG Tablet) PO SCH (18:00)
[2022-12-02] MEDS ORDERED: ZOCOR 20MG PO SCH (18:00)
[2022-12-02] MEDS ORDERED: XARELTO 10 MG TABLET PO SCH ×2 (18:00)
[2022-12-02] MEDS ORDERED: NON-FORMULARY ITEM (Nifedipine [Nifedipine Er] 60 MG Tab.Er.24) PO SCH (18:00)
[2022-12-03 07:39] LABS: BASOPHIL % 1.3 % (0.0-0.4); Basophil (Absolute #) 0.11 x10^3/uL (0-0.4); Eosinophil % 2.2 % (0.00-5.0); Eosinophil (Absolute #) 0.19 x10^3/uL (0-0.5); Hematocrit 48.8 % (42-50); Hemoglobin 16.5 g/dL (12.5-18.0); IMMATURE GRAN # 0.02 x10^3u/L (0.00-0.03); IMMATURE GRAN % 0.2 % (0.00-0.4); Mean Cell Volume 94.2 fL (78-100); Mean Corpuscular Hemoglobin 31.9 pg (26-32); Mean Corpuscular Hgb Concent. 33.8 g/dL (32-36); Mean Platelet Volume 10.2 fL (7.5-11.0); Monocyte (Absolute #) 0.75 x10^3/uL (0.0-1.3); Monocytes % 8.8 % (0.0-12.0); Neutrophil % 45.5 % (36.0-66.0); Platelet Count 243 x10^3/uL (150-450); Red Blood Count 5.18 x10^6/uL (4.1-5.6); Red Cell Distribution Width 13.3 % (11.5-14.0); White Blood Count 8.6 x10^3/uL (4.0-10.5)
[2022-12-03 08:27] LABS: ALKALINE PHOSPHATASE 65 U/L (38-126); ANION GAP 14.6 MEQ/L (5-15); BLOOD UREA NITROGEN 21 mg/dL (9-20); CHLORIDE 107 mmol/L (98-107); Calcium 8.6 mg/dL (8.4-10.2); Carbon Dioxide 22 mmol/L (22-30); Creatinine 1 0.83 mg/dL (0.66-1.25); EST GLOMERULAR FILTRATION RATE > 60.0 ML/MIN; Glucose 136 mg/dL (74-106); Potassium 3.6 mmol/L (3.5-5.1); SGOT/AST 39 U/L (17-59); SGPT/ALT 50 U/L (0-50); SODIUM 140 mmol/L (137-145); Total Protein 7.1 g/dL (6.3-8.2)
--- NOTE | 2022-12-03 09:15 | PCM.DS ---
Discharge Summary Date of Admission: 12/01/22 22:40 Admitting Physician: BRENDA NAGY MD Consults: Consults on Case 12/03/22 08:15 Consult Cardiology ROUTINE Primary Care Provider: JUNE SHARMA Allergies Allergies No Known Drug Allergies Allergy (Verified 12/01/22 16:29) Hospital Summary - Hospital Course Hospital Course: Pt is a 77 yo male with hx of HTN, DM, BPH, Afib on DOAC who presented with a 2- 3 day hx of bradycardia. Had last taken metoprolol the day before admission. Has not been bradycardic here, but we have continued to hold the metoprolol. He's had hypertension into the 190s at times, but currently bp 120s-130 systolic. On admission there was concern with elevated anion gap but that has resolved. Pt had started having dizziness after picking up a prescription of flomax that was from a different binman than usual, so he has not been taking it. He is complaining of LUQ/L lower rib pain today. Will get stat rib XR and if that's negative CT abdomen without contrast. His exam is nonacute. Cristy po, He has been asymptomatic with respect to dizziness/orthostasis. On telemetry, he has been in sinus rhythm but with episodes of frequent bigeminy. The nurse discussed with Dr. Wang's nurse - since Dr. Wang is in office in [place] today, the pt will be discharged to home to f/u with him at 2:45 with his telemetry strips. F/u with PCP in 1 week. - Vitals & Intake/Output Vital Signs: Vital Signs Temperature 97.5 F 12/03/22 07:26 Pulse Rate 54 L 12/03/22 07:26 Respiratory Rate 18 12/03/22 07:26 Blood Pressure 138/73 12/03/22 07:26 O2 Sat by Pulse Oximetry 92 L 12/03/22 07:26 Intake & Output: Intake & Output 11/30/22 12/01/22 12/02/22 12/03/22 11:59 11:59 11:59 11:59 Intake Total 720 1540 Output Total 1100 1850 Balance -380 -310 Weight 110.6 kg - Lab Result Diagrams: 12/03/22 07:36 12/03/22 07:36 Lab Results-Last 24 Hrs: Lab Results-Last 24 Hours 12/02/22 12/02/22 12/03/22 Range/Units 16:31 20:51 06:40 WBC (4.0-10.5) x10^3/uL RBC (4.1-5.6) x10^6/uL Hgb (12.5-18.0) g/dL Hct (42-50) % MCV (78-100) fL MCH (26-32) pg MCHC (32-36) g/dL RDW (11.5-14.0) % Plt Count (150-450) x10^3/uL MPV (7.5-11.0) fL Gran % (36.0-66.0) % Immature Gran % (Auto) (0.00-0.4) % Nucleat RBC Rel Count (0.00-0.1) % Eos # (Auto) (0-0.5) x10^3/uL Immature Gran # (Auto) (0.00-0.03) x10^3u/L Absolute Lymphs (auto) (1.0-4.6) x10^3/uL Absolute Monos (auto) (0.0-1.3) x10^3/uL Absolute Nucleated RBC (0.00-0.01) x10^3u/L Lymphocytes % (24.0-44.0) % Monocytes % (0.0-12.0) % Eosinophils % (0.00-5.0) % Basophils % (0.0-0.4) % Absolute Granulocytes (1.4-6.9) x10^3/uL Basophils # (0-0.4) x10^3/uL Sodium (137-145) mmol/L Potassium (3.5-5.1) mmol/L Chloride (98-107) mmol/L Carbon Dioxide (22-30) mmol/L Anion Gap (5-15) MEQ/L BUN (9-20) mg/dL Creatinine (0.66-1.25) mg/dL Estimated GFR ML/MIN Glucose (74-106) mg/dL POC Glucometer 129 H 178 H 135 H (74 to 106) mg/dL Calcium (8.4-10.2) mg/dL Total Bilirubin (0.2-1.3) mg/dL AST (17-59) U/L ALT (0-50) U/L Alkaline Phosphatase (38-126) U/L Serum Total Protein (6.3-8.2) g/dL Albumin (3.5-5.0) g/dL 12/03/22 12/03/22 Range/Units 07:36 07:36 WBC 8.6 (4.0-10.5) x10^3/uL RBC 5.18 (4.1-5.6) x10^6/uL Hgb 16.5 (12.5-18.0) g/dL Hct 48.8 (42-50) % MCV 94.2 (78-100) fL MCH 31.9 (26-32) pg MCHC 33.8 (32-36) g/dL RDW 13.3 (11.5-14.0) % Plt Count 243 (150-450) x10^3/uL MPV 10.2 (7.5-11.0) fL Gran % 45.5 (36.0-66.0) % Immature Gran % (Auto) 0.2 (0.00-0.4) % Nucleat RBC Rel Count 0.0 (0.00-0.1) % Eos # (Auto) 0.19 (0-0.5) x10^3/uL Immature Gran # (Auto) 0.02 (0.00-0.03) x10^3u/L Absolute Lymphs (auto) 3.60 (1.0-4.6) x10^3/uL Absolute Monos (auto) 0.75 (0.0-1.3) x10^3/uL Absolute Nucleated RBC 0.00 (0.00-0.01) x10^3u/L Lymphocytes % 42.0 (24.0-44.0) % Monocytes % 8.8 (0.0-12.0) % Eosinophils % 2.2 (0.00-5.0) % Basophils % 1.3 (0.0-0.4) % Absolute Granulocytes 3.90 (1.4-6.9) x10^3/uL Basophils # 0.11 (0-0.4) x10^3/uL Sodium 140 (137-145) mmol/L Potassium 3.6 (3.5-5.1) mmol/L Chloride 107 (98-107) mmol/L Carbon Dioxide 22 (22-30) mmol/L Anion Gap 14.6 (5-15) MEQ/L BUN 21 H (9-20) mg/dL Creatinine 0.83 (0.66-1.25) mg/dL Estimated GFR > 60.0 ML/MIN Glucose 136 H (74-106) mg/dL POC Glucometer (74 to 106) mg/dL Calcium 8.6 (8.4-10.2) mg/dL Total Bilirubin 0.90 (0.2-1.3) mg/dL AST 39 (17-59) U/L ALT 50 (0-50) U/L Alkaline Phosphatase 65 (38-126) U/L Serum Total Protein 7.1 (6.3-8.2) g/dL Albumin 4.0 (3.5-5.0) g/dL Micro Results-Entire Visit: Accuchecks Date 12/03/22 Date 12/02/22 Date 12/02/22 Time 07:29 Time 20:35 Time 16:37 - Radiology Exams Ordered Rad Exams-Entire Visit: Radiology Procedures Category Date Time Status ABDOMEN WITHOUT CONTRAST [CT] Urgent Exams 12/03/22 09:08 Ordered CHEST 1 VIEW (PORTABLE) Stat Exams 12/01/22 17:15 Completed ECHO W/2D AND DOPPLER [US] Routine Exams 12/02/22 00:10 Taken RIBS UNILATERAL Stat Exams 12/03/22 09:06 Ordered Discharge Exam General Appearance: no apparent distress, alert Neurologic Exam: oriented x 3, cooperative Eye Exam: eyes nml inspection Ears, Nose, Throat Exam: moist mucous membranes Neck Exam: normal inspection Respiratory Exam: normal breath sounds, lungs clear, No crackles/rales, No rhonchi, No wheezing Cardiovascular Exam: normal heart sounds, irregular, No murmur Gastrointestinal/Abdomen Exam: soft, normal bowel sounds, tenderness (LUQ, L lower flank. No rash present. no erythema.), No distention, No mass, No guarding, No rebound Extremity Exam: normal inspection, No pedal edema, No swelling Final Diagnosis/Problem List - Final Discharge Diagnosis/Problem (1) Bradycardia Current Visit: Yes Status: Resolved Assessment & Plan: To Dr. Wang to see if another antihypertensive needs added, as his toprol has been held d/t bradycardia. Code(s): R00.1 - BRADYCARDIA, UNSPECIFIED (2) Atrial fibrillation Current Visit: Yes Status: Chronic Code(s): I48.91 - UNSPECIFIED ATRIAL FIBRILLATION (3) HTN (hypertension) Current Visit: Yes Status: Chronic Assessment & Plan: Did skip 1 d of meds, but resumed yesterday. Code(s): I10 - ESSENTIAL (PRIMARY) HYPERTENSION (4) Diabetes mellitus Current Visit: Yes Status: Chronic Code(s): E11.9 - TYPE 2 DIABETES MELLITUS WITHOUT COMPLICATIONS (5) Generalized weakness Current Visit: Yes Status: Resolved Code(s): R53.1 - WEAKNESS (6) High anion gap metabolic acidosis Current Visit: Yes Status: Resolved Assessment & Plan: I have stopped his metformin, as this can be a cause. Code(s): E87.29 - (7) LUQ pain Current Visit: Yes Status: Acute Assessment & Plan: xray ribs and do CT abd Code(s): R10.12 - LEFT UPPER QUADRANT PAIN - Discharge Disposition: Home, Self-Care Condition: Stable Prescriptions: Continue Aspirin [Ecotrin] 81 mg PO DAILY Polyethylene Glycol 3350 17 gm [Miralax Powder 17GM PACKET] 1 packet PO DAILY Niacin 500 mg PO EVENING MEAL Atorvastatin Calcium 40 mg PO EVENING MEAL NIFEdipine [Nifedipine ER] 60 mg PO EVENING MEAL Multivitamin W-Minerals/Lutein [Centrum Silver Tablet] 1 tab PO DAILY Tamsulosin HCl 0.4 mg [Flomax 0.4 MG] 0.4 mg PO DAILY Ramipril [Altace] 5 mg PO EVENING MEAL Ergocalciferol (Vitamin D2) [Vitamin D2] 1 ea WEEKLY Rivaroxaban [Xarelto] 20 mg PO EVENING MEAL Allopurinol 100 mg [Zyloprim 100 mg] 100 mg PO DAILY Ascorbic Acid [Vitamin C] 500 mg PO DAILY Empagliflozin [Jardiance] 25 mg PO DAILY Discontinued Metformin HCl 1000 mg [Glucophage 1000 MG] 1 tab PO BID Metoprolol Succinate 50 mg [Toprol Xl 50 MG] 50 mg PO BID Follow up with: ELZBIETA WANG [CONSULTING PHYSICIAN] - JUNE SHARMA [Primary Care Provider] -
[2022-12-03] MEDS: ZYLOPRIM 100 MG PO SCH (09:33)
[2022-12-03] MEDS: ECOTRIN 81 MG PO SCH (09:33)
[2022-12-03] MEDS ORDERED: Flomax 0.4 MG PO SCH (10:00)
--- NOTE | 2022-12-03 10:04 | XRAY ---
Indication: Left upper quadrant pain. Multiple contiguous axial images obtained through the abdomen only without contrast. Comparison: None Lung bases demonstrate mild right base fibrosis/scarring and small lingula calcified granuloma. No infiltrate or effusion. Heart not enlarged. Stomach mildly distended with food/fluid. Noncontrasted stomach and visualized bowel loops appear nonobstructed with normal appendix. Visualized colon demonstrates mild diffuse scattered fecal debris and diverticulosis without diverticulitis. Gallbladder normally distended with circumferential wall thickening but no gallstones or biliary distention. Mild diffuse fatty liver. No free fluid/air. Remaining liver, pancreas, spleen, adrenal glands, kidneys, and proximal ureters are unremarkable for noncontrast exam. Mild scattered aortoiliac calcifications without AAA. Osseous structures intact with mild/moderate degenerative changes throughout the thoracolumbar spine. Impression: 1. Gallbladder circumferential wall thickening better evaluated with sonogram. 2. Mild diffuse fecal stasis and scattered colonic diverticulosis. 3. Chronic findings including fatty liver, arteriosclerotic disease, chronic bony findings, and old granulomatous disease.
--- NOTE | 2022-12-03 10:06 | XRAY ---
Indication: Left upper quadrant pain. Comparison: None 2 view left ribs demonstrate multiple overlying monitoring leads, mild/moderate left shoulder degenerative arthropathy, and small left lung calcified granuloma. No other bony, articular, or soft tissue abnormalities.
[2022-12-03] MEDS ORDERED: Adalat CC 30 MG TABLET PO ONE (11:24)
[2022-12-03 11:35] VITALS: BP 133/75; PULSE 80; O2SAT 93
--- NOTE | 2022-12-03 12:51 | ECHO ---
Transthoracic echocardiographic examination and color Doppler was done on 12/02/2022. INDICATION: Murmur and hypertension. IMPRESSION: 1) NO REGIONAL WALL MOTION ABNORMALITY. ESTIMATED GLOBAL LEFT VENTRICULAR EJECTION FRACTION BETWEEN 60 AND 65%. 2) TRACE MITRAL REGURGITATION. 3) TRACE TRICUSPID REGURGITATION. RIGHT VENTRICULAR SYSTOLIC PRESSURE OF 30 MM OF MERCURY. 4) LEFT VENTRICULAR HYPERTROPHY. The left ventricle is visualized and demonstrated adequate motion of all the segments. Estimated global left ventricular ejection fraction of around 60 to 65%. There is mild left ventricular hypertrophy. The mitral valve is seen and this opens adequately. There is trace mitral regurgitation. Left atrium is normal. The aortic valve opens adequately. There is no significant gradient across the left ventricular outflow tract. The right side chambers are normal. There is trace tricuspid regurgitation. Right ventricular systolic pressure of 30 mm of Mercury.
== END 2022-12-03 14:25 | disposition home or self-care (01) ==
LOC: ED 16:01 → ICU 22:40 → MED SURG 12-02 13:37
PROVIDERS: ADMIT Internal Medicine Critical Care Medicine; ATTEND Family Medicine
DX: R00.1 Bradycardia, unspecified (principal); I48.91 Unspecified atrial fibrillation; I10 Essential (primary) hypertension; E11.9 Type 2 diabetes mellitus without complications; R53.1 Weakness; E87.29 Other acidosis; R10.12 Left upper quadrant pain; N40.0 Benign prostatic hyperplasia without lower urinary tract symptoms; Z79.899 Other long term (current) drug therapy; Z20.828 Contact with and (suspected) exposure to other viral communicable diseases
CPT/HCPCS: 0241U; 36000; 36415; 71045; 71100; 74150; 80048; 80053; 81001; 82550; 82947; 83605; 83735; 84484; 85025; 93005; 93041; 93268; 93306; 94760; 99285; G0378; J1817; A9270-GY

== ENCOUNTER 2023-04-27 07:25 | Day surgery (SDC) | payer MEDICARE, OTHER ==
[~2023-04-27 07:25] MED LIST changes: +Ak-Dilate OPHTHALMIC*** 1.065 ML, Cyclogyl 1% OPHTH SOL 1.065 ML, GATIFLOXACIN 0.5% OPH... OP ONE; +BETADINE 5% OPHTHALMIC 30 ML OP ONE; -BICITRA 30 ML CUP ONE; -BICITRA 30 ML CUP PO ONE; -CEFAZOLIN 2 GM-D5W BAG** 50 ML IV ONE; -DILAUDID 2 MG INJECTION IV ONE; -DIPRIVAN 200 MG/20 ML IV ONE; -Lactated Ringers 1,000 ML IV ONE; +NON-FORMULARY ITEM OP ONE; -Pepcid 20 MG VIAL IV ONE; -Quelicin Fliptop 200 MG/10 ML IJ ONE; -SUBLIMAZE 250 MCG/5 ML IV ONE; -Sensorcaine 0.25% 10 ML ONE; +TETRACAINE 0.5% STERI-UNIT SOL OP ONE; -Versed 2 MG/2 ML Injection IV ONE; -Zofran 4 MG/2 ML VIAL IV ONE; +cefUROXime sodium 0.005 GM in Sodium Chloride Flush 30 ML*** 0.5 ML IJ ONE
[2023-04-27] MEDS ORDERED: Epinephrine Preservative Free 1 MG/ML IJ ONE (07:26)
[2023-04-27] MEDS ORDERED: Lactated Ringers 1,000 ML IV ONE (07:40)
[2023-04-27] MEDS ORDERED: ACETAZOLAMIDE 250 MG TABLET PO ONE (09:00)
[2023-04-27] MEDS ORDERED: Zofran 4 MG/2 ML VIAL IV PRN (09:00)
[2023-04-27] MEDS ORDERED: DIPRIVAN 200 MG/20 ML IV ONE ×2 (10:29→10:38)
[2023-04-27] MEDS ORDERED: Furosemide 100mg/10 ml Vial IV ONE (11:06)
[2023-04-27] MEDS ORDERED: Lasix 40 MG/4 ML ONE (11:07)
[2023-04-27 11:11] VITALS: PULSE 70; O2SAT 96
[2023-04-27 11:15] VITALS: BP 135/79
== END 2023-04-27 11:30 | disposition home or self-care (01) ==
LOC: SDC 07:25
PROVIDERS: ATTEND Ophthalmology
DX: H25.811 Combined forms of age-related cataract, right eye (principal); E11.9 Type 2 diabetes mellitus without complications; I10 Essential (primary) hypertension
CPT/HCPCS: 82947; 93005; C1780; J0171; J1940; J2704; A9270-GY